=== PATIENT | female | born 1960 | race Caucasian/White ===

== ENCOUNTER → 2019-01-28 17:42 | Outpatient (CLI) | payer OTHER, SELFPAY ==
--- NOTE | 2019-01-28 17:45 | CT_ITS ---
STUDY: LOW DOSE CT LUNG CANCER SCREENING REASON FOR EXAM: Female, 58 years old. Lung cancer smoker screening RADIATION DOSAGE (If Supplied By Facility): CTDIvol = ( 2.55 ) mGy, DLP = ( 87.10 ) mGycm TECHNIQUE: No contrast was administered. Low dose technique was utilized (average mAS-38 and kVp 120). 1.25 mm axial source images with a slice interval of 1.25-mm were reconstructed in lung windows. 2.5 mm axial source images with a slice interval of 2.5-mm were reconstructed in lung windows. 5.0 mm axial source images with a slice interval of 5.0-mm were reconstructed in soft tissue windows. Nodule measured using lung windows on PACS and/or independent workstation with automated measurement of minimum and maximum diameter. Nodule measurement reported as average diameter rounded to the nearest whole number. Growth is defined as an increase ins size of greater than 1.5 mm. COMPARISON: None. Findings: Lungs are clear without focal thoracic opacities. There is scarring in the lingula and right middle lobe medial segment. There is mild to moderate emphysema. Central airways are patent. Limited visualized mediastinal contents are unremarkable. Cardiac chambers are normal in size and shape. Pleural surfaces are intact. CT/Low Dose CT Lung Screening IMPRESSION: 1. Clear lungs. 2. LUNG-RADS category 1. IMPORTANT NOTES FOR USE: ACR Lung-RADS Version 1.0 Assessment Categories Release Date: August 05, 2013 Category: Coded 0-4 bases on nodule(s) with highest degree of suspicion. Negative screen is defined as categories 1 and 2; a positive screen is defined as categories 3 and 4. Category 3 and 4A nodules that are unchanged on interval CT should be coded as category 2, and individuals returned to screening in 12 months. Category 4X: Category 3 or 4 nodules with additional imaging findings that increase the suspicion of lung cancer, such as spiculation, GGN that doubles in size in 1 year, enlarged lymph notes, etc. Category Modifiers: S (significant finding unrelated to lung cancer) and C (prior history of treated lung cancer) may be added to the 0-4 Lung-RADS Electronically Signed: Erin Castro, at 18:21 EDT Tel , Service support ,
== END ==
DX: Z87.891 Personal history of nicotine dependence (principal)
CPT/HCPCS: G0297

== ENCOUNTER → 2019-01-31 16:27 | Outpatient (CLI) | payer OTHER, SELFPAY ==
--- NOTE | 2019-01-31 16:32 | BI_ITS ---
MAMMOGRAPHY - BILATERAL SCREENING REASON FOR EXAM: Female, 58 years old. Routine annual screening examination. PERTINENT HISTORY: Non-contributory. TECHNIQUE: Digital bilateral breast caryn (3D mammographic acquisition) in the CC and MLO projections. 2-D mediolateral oblique (MLO) and craniocaudad (CC) views of both breasts were obtained. CAD: Full Field Digital Mammography with Computer Added Detection was performed. COMPARISON: Comparison is made with prior study dated May 30, 2016 and July 26, 2012. FINDINGS: Breast Composition: The breasts are heterogeneously dense, which may obscure small masses. There are no dominant masses or suspicious calcifications. A skin lesion is seen along the lateral superior aspect of the left breast. Stable benign-appearing bilateral axillary lymph nodes. No other significant abnormalities are identified. There has been no significant change since the prior study. BI/SCREEN MAMM (CAD) W/CARYN BILAT IMPRESSION: Stable bilateral screening mammogram. Yearly follow-up mammogram recommended. (A) ASSESSMENT CATEGORY: BIRADS Category 2: Benign. A letter regarding these results will be sent to the patient by the facility within 30 days. Approximately 10% of breast cancers are not detected by mammography. A normal mammogram should not delay biopsy of a clinically suspicious abnormality. [id number] Electronically Signed: Joe Cross, at 8:12 EDT , Service support ,
== END ==
DX: Z12.31 Encounter for screening mammogram for malignant neoplasm of breast (principal)
CPT/HCPCS: 77063; 77067